=== PATIENT | male | born 1955 | race Two or more races ===

== ENCOUNTER 2018-03-12 11:11 | Emergency (ER) | payer OTHER ==
[~2018-03-12] VITALS: Ht 167.6 cm; Wt 108.9 kg
[2018-03-12] MEDS ORDERED: KETOROLAC TROMETH 60MG/2ML VIAL IM ONE (11:30)
[2018-03-12 11:39] VITALS: BP 179/100
== END 2018-03-12 12:55 | disposition home or self-care (01) ==
LOC: EDBD 11:11 → ER 11:16
DX: R07.89 Other chest pain (principal); E11.9 Type 2 diabetes mellitus without complications; E78.5 Hyperlipidemia, unspecified; I10 Essential (primary) hypertension; Z88.6 Allergy status to analgesic agent; V43.62XA Car passenger injured in collision with other type car in traffic accident, initial encounter; Y93.89 Activity, other specified; Y92.488 Other paved roadways as the place of occurrence of the external cause; Y99.8 Other external cause status
CPT/HCPCS: 71046; 93005; 96372; 99283; J1885